=== PATIENT | male | born 1965 | race Caucasian/White ===

== ENCOUNTER 2020-09-12 16:24 | Observation (INO) ==
[2020-09-12 17:41] LABS: Basophils # 0.1 10*3/uL (0.0-0.2); Basophils % 0.6 % (0.0-0.8); Eosinophils # 0.2 10*3/uL (0.0-0.87); Eosinophils % 2.4 % (0.00-10.9); Hematocrit 44.6 VOL% (42.0-52.0); Hemoglobin 15.1 GM/DL (14.0-18.0); Immature Granulocytes % 0.6 %; Immature Granulocytes Absolute 0.05 #; Lymphocytes # 2.2 10*3/uL (1.4-4.0); Lymphocytes % 28.1 % (21.2-54.2); Mean Corpuscular HGB Conc 33.9 GM/DL (32-36); Mean Corpuscular Volume 90.3 FL (87-102); Monocytes % 5.9 % (1.7-12.7); Neutrophils % 62.4 % (38.7-73.9); Platelet Count 293 T/CUMM (130-400); Red Blood Count 4.94 MC/CUMM (3.8-5.5); Red Cell Distribution Width 13.2 % (9.3-17.3); White Blood Count 7.8 T/CUMM (4-12)
[2020-09-12 18:08] LABS: Albumin 3.9 G/DL (3.4-5.0); Osmolality,Calculated 279.5 MOS/KG (273-304); Potassium 3.6 MMOL/L (3.5-5.1); Total Protein 7.8 G/DL (6.4-8.3)
[2020-09-12] MEDS ORDERED: HYDROmorphone 2 MG/1 ML VIAL IV PRN (19:10)
[2020-09-12] MEDS ORDERED: ONDANSETRON 4 MG/2 ML VIAL IV PRN (19:10)
[2020-09-12] MEDS ORDERED: ACETAMINOPHEN 325 MG TABLET PO PRN (19:10)
[2020-09-12] MEDS ORDERED: cloNIDine 0.1 MG TABLET PO STA (20:08)
[2020-09-12] MEDS ORDERED: hydrALAZINE 20 MG/1 ML VIAL IV PRN (21:03)
[2020-09-12] MEDS: SODIUM CHLORIDE 0.9% 1,000 ML IV SCH (23:26)
[2020-09-13] MEDS: SODIUM CHLORIDE 0.9% 1,000 ML IV SCH (06:03)
[2020-09-13] MEDS ORDERED: amLODIPine 10 MG TABLET PO SCH (09:00)
[2020-09-13] MEDS ORDERED: PANTOPRAZOLE 40 MG TABLET PO SCH (09:00)
[2020-09-13 19:34] VITALS: BP 174/113
== END 2020-09-13 19:40 | disposition left against medical advice (07) ==
LOC: N.EDINP 16:24 → N.ED 16:24 → N.3E 21:00
PROVIDERS: ADMIT Student in an Organized Health Care Education/Training Program; ATTEND Student in an Organized Health Care Education/Training Program